=== PATIENT | female | born 1955 | race Caucasian/White ===

== ENCOUNTER 2019-01-17 09:51 | Inpatient (IN) ==
[2019-01-17] MEDS ORDERED: ASPIRIN PO ONE (11:07)
[2019-01-17] MEDS ORDERED: PEPCID PO ONE (11:08)
[2019-01-17] MEDS ORDERED: NS 1,000 ML IV ONE ×2 (11:08→15:11)
--- NOTE | 2019-01-17 11:32 | Diag Imaging Result Doc PS360 ---
CHEST-2 VIEWS - 01/17/2019 INDICATION: COUGH COMPARISON: 06/27/2018 FINDINGS: There is a new dense focal infiltrate at the right middle lobe. There is some stable mild interstitial scarring or chronic atelectasis in both lung bases. Heart size and pulmonary vascularity are top normal. No pneumothorax or significant pleural effusion. IMPRESSION: Dense infiltrate/pneumonia in the right middle lobe. Electronically signed by Terrell Guevara 01/17/2019 11:30 AM
--- NOTE | 2019-01-17 12:02 | Diag Imaging Result Doc PS360 ---
CT HEAD W/O CONTRAST - 01/17/2019 INDICATION: AMS COMPARISON: None FINDINGS: There is mild diffuse cerebral atrophy. No intracranial mass or hemorrhage. The skull is intact. The sinuses, mastoids, and middle ears are clear. IMPRESSION: Cerebral atrophy. No acute process. This exam was performed using automated exposure control, adjustment of mA or kV according to patient size, and/or use of iterative reconstruction technique Electronically signed by Terrell Guevara 01/17/2019 11:59 AM
[2019-01-17 12:33] LABS: URINE SOURCE CLEAN CATCH
[2019-01-17 12:36] LABS: BASO# 0.02 X1000 (0.0-0.2); BASO% 0.2 % (0.0-0.8); EOS# 0.09 X1000 (0.0-0.7); EOS% 0.9 % (0.0-10.0); IMM GRAN# 0.06 X1000 (0.0-0.04); IMM GRAN% 0.6 % (0.0-0.5); LYMPH# 1.95 X1000 (1.2-3.4); LYMPH% 18.6 % (20.5-51.1); MCH 30.2 PG (27-31); MCHC 33.3 g/dL (33-37); MCV 90.5 FL (81-99); MONO# 0.83 X1000 (0.11-0.59); MONO% 7.9 % (1.7-9.3); MPV 11.4 FL (7.4-10.4); NEUT# 7.55 X1000 (1.4-6.5); NEUT% 71.8 % (42.2-75.2); PLT 194 X1000 (130-400); RBC 4.31 XMIL (4.2-5.4); RDW 13.5 % (11.5-14.5)
[2019-01-17 12:38] LABS: BILIRUBIN URINE NEGATIVE (NEGATIVE); BLOOD URINE NEGATIVE (NEGATIVE); COLOR STRAW; GLUCOSE URINE NEGATIVE (NEGATIVE); KETONE URINE NEGATIVE (NEGATIVE); LEUKOCYTES URINE NEGATIVE (NEGATIVE); NITRITE URINE NEGATIVE (NEGATIVE); PROTEIN URINE NEGATIVE (NEGATIVE); TURBIDITY URINE CLEAR (CLEAR); UR EPITHELIAL CELLS <10 /HPF (<10); URINE BACTERIA NEGATIVE /HPF; URINE RBC <10 /HPF (<10); URINE WBC <10 /HPF (<10); UROBILINOGEN URINE NORMAL (NORMAL)
[2019-01-17 12:46] LABS: INR 0.92; PROTIME 13.1 Seconds (11.0-16.0)
[2019-01-17 12:47] LABS: PTT 39.8 Seconds (22.3-41.8)
[2019-01-17 13:03] LABS: ALB/GLOB RATIO 1.7; ALBUMIN 4.3 g/dL (3.5-5.0); CALCIUM 10.5 mg/dL (8.8-10.2); CREATININE 1.4 mg/dL (0.5-0.9); MAGNESIUM 1.8 mg/dL (1.5-2.7); POTASSIUM 3.9 mmol/L (3.5-5.1); TOTAL BILIRUBIN 0.22 mg/dL (0.20-1.00); TOTAL PROTEIN 6.8 g/dL (6.3-8.3)
[2019-01-17 13:03] LABS: UR AMPHETAMINES QUAL NONE DETECTED (NONE DETECT); UR BARBITUATES QUAL NONE DETECTED (NONE DETECT); UR BENZODIAZEPIN QUAL PRESUMPTIVE POSITIVE (NONE DETECT); UR CANNABINOIDS QUAL PRESUMPTIVE POSITIVE (NONE DETECT); UR COCAINE QUAL NONE DETECTED (NONE DETECT); UR METHADONE QUAL NONE DETECTED (NONE DETECT); UR OPIATES QUAL PRESUMPTIVE POSITIVE (NONE DETECT); UR OXYCODONE QUAL NONE DETECTED (NONE DETECT); UR PCP QUAL NONE DETECTED (NONE DETECT)
--- NOTE | 2019-01-17 13:58 | EKG Report ---
Test Performed on : 01/17/2019 12:50:19 PM Test Reason : AMS Blood Pressure : / mmHG Vent. Rate : 068 BPM Atrial Rate : 068 BPM P-R Int : 184 ms QRS Dur : 096 ms QT Int : 438 ms P-R-T Axes : 064 037 053 degrees QTc Int : 465 ms Normal sinus rhythm. Possible Left atrial enlargement Inferior infarct , age undetermined Abnormal ECG When compared with ECG of 23-JUL-2011 06:08, Inferior infarct is now present Nonspecific T wave abnormality no longer evident in Lateral leads Unconfirmed Result
[2019-01-17] MEDS ORDERED: ROCEPHIN 1 GM in NS 50 ML IV ONE (15:12)
[2019-01-17] MEDS ORDERED: ZOFRAN IV PRN (16:09)
[2019-01-17] MEDS ORDERED: NS 1,000 ML IV PRN (16:09)
[2019-01-17 16:14] LABS: ACETAMINOPHEN < 1.2 ug/mL (10-30); SALICYLATES < 3.00 mg/dL (3-10)
[2019-01-17 16:35] LABS: ALLEN TEST NO; BE -3.8 mmoll (-3.0-3.0); BLOOD TYPE ARTERIAL; HCO3-(ACT) 21.9 mmoll (20.0-26.0); METHB 1.1 % (0.0-1.5); O2(CT) 16.2 mL/dL (15.0-23.0); O2HB 94.1 % (95.0-99.0); PCO2(98.6) 35 mmHg (35-45); PO2(98.6) 72 mmHg (60-100); SAMPLE BLOOD; SAO2 97.3 % (95.0-100.0); THB 12.2 g/dL (11.5-17.4); pH(98.6) 7.38 (7.35-7.45)
[2019-01-17 16:36] LABS: MODALITY CANNULA
--- NOTE | 2019-01-17 18:22 | HISTORY AND PHYSICAL ---
PRIMARY CARE PROVIDER: Dr. Sixto Birmingham. CHIEF COMPLAINT: Altered mental status. HISTORY OF PRESENT ILLNESS: Ms. Ana Vega is a 63-year-old female with a medical history of chronic pain syndrome, anxiety/depression/bipolar disorder, and TIAs. She recently has been using Chantix to try and quit smoking. She presents here with altered mental status. Apparently she has called out of work the last 3 days. She has had an upper respiratory infection and was treated by Dr. Birmingham for pneumonia on Monday when she went to visit him. He started her on cefdinir and prednisone, and she has essentially been in bed for the last 3 days. She states that the phlegm she coughs up is yellow-green in color. She has had subjective fever and chills. According to the who is also at the bedside, she started acting odd last night, very odd behavior, just standing over him staring at him, and just staring in the hallway. She did not sleep at all last night. This morning apparently he must have gone to work, and she was supposed to show up at work, but she was a no-call and no-show, so her place of work called her and noted that she was altered with her thought process and speech, and notified her family. Apparently she was found on the floor trying to stick her finger in an electrical outlet. It appeared to the daughter, who is at the bedside, that it looked like she was trying to plug something in. She had very [id number] conversation, just very altered. There was no obvious source of weakness on one side or the other. There was no facial drooping. It was just all altered mentation. She was alert. X-ray shows that she has a right middle lobe pneumonia, for which apparently she was just started 2 days ago with treatment. Her head CT was negative. She has cleared up quite a bit since she has been here. She had an acute kidney injury and has received IV fluids. She does have a positive urine drug screen but has prescriptions except for the marijuana, which she states she smokes on a daily basis in the evenings. Her orientation for me was completely oriented, but she still had odd, [id number] conversation. She denies taking more medication than what is prescribed for her. The daughter who is at the bedside stated that the only bottle she could find was Xanax, which actually appeared to be accurate with what should be in there. So, we will admit. We will watch her in the ICU overnight. We will watch her at [facility], treat her pneumonia, and make adjustments as needed. PAST MEDICAL HISTORY: 1. Bipolar anxiety disorder. 2. Chronic pain syndrome. 3. Transient ischemic attacks. 4. Hypothyroidism. 5. Chronic obstructive pulmonary disease. No home oxygen. 6. Hypertension. 7. Gastroesophageal reflux disease 8. Arthritis. 9. Enlarged liver with normal liver enzymes and normal ammonia level. PAST SURGICAL HISTORY: 1. Partial hysterectomy. 2. section. SOCIAL HISTORY: She smokes 1 pack per day and has so for the last 30 years, although she has been taking Chantix for at least 1 month now in an attempt to stop smoking. She denies alcohol but smokes marijuana about 1-2 hits per night, according to her. She is an [employer] and still working. FAMILY HISTORY: Mother's side of the family: No medical conditions. Father's side of the family: Alzheimer's. ALLERGIES: No known drug allergies. HOME MEDICATIONS: 1. Chantix. 2. Coreg 6.25 mg p.o. twice a day. 3. Toradol 10 mg p.o. every 6 hours p.r.n. 4. Xanax 0.5 mg p.o. twice daily. 5. It also looks like she recently had Protonix filled, 40 mg p.o. daily. 6. She also had Symbyax 6-50 filled. We are getting those verified right now. 7. She most recently had prednisone 10 mg daily filled, and cefdinir. REVIEW OF SYSTEMS: Difficult to obtain given her altered conversation. States that she coughs up green-yellow phlegm and has just felt bad. PHYSICAL EXAMINATION: VITAL SIGNS: Temperature 97.9, heart rate 74, respiratory rate 18, blood pressure 127/81, O2 saturation 91% on room air. She has had oxygen added. GENERAL: Ms. Ana Vega is a 63-year-old female. She is in no acute distress. She is able to answer some questions appropriately. She is oriented but disoriented with conversation. Resting comfortably in bed. HEENT: Atraumatic, normocephalic. Pupils equal, round, and reactive to light. Extraocular movements intact. Mucous membranes are very dry . NECK: Trachea midline. CARDIOVASCULAR: S1 and S2, regular rate and rhythm. No rubs, gallops or murmurs. No lower extremity edema. Has +2 dorsalis and radial pulses. Negative JVD or carotid bruits. PULMONARY: Clear to auscultate bilaterally. Breath sounds decreased in bases anteriorly. No accessory muscle use or work of breathing noted. Currently tolerating nasal cannula. GI: Soft, nontender, nondistended. Positive bowel sounds x4. EXTREMITIES: Moves all extremities equally with full range of motion. NEUROLOGIC: A O x3 with confused conversation. Follows commands. Sensory is intact. SKIN: Warm, dry and intact. LABORATORY DATA: White blood cells 10,000, hemoglobin 13, hematocrit 39, platelet count 194. INR is 0.92, PTT 39.8. Sodium 142, potassium 3.9, BUN 26, creatinine 1.4, glucose 77. Calcium 10.5, magnesium 1.8, bilirubin 0.22. AST 9, ALT 7. Ammonia 33. Troponin less than 0.01. Albumin 4.3. Serum lactate 1.3. Free T4 is 1.13. Urinalysis is negative. Urine drug screen positive for opiates, benzodiazepines and cannabinoids. IMAGING: Chest x-ray: Dense infiltrate pneumonia in the right middle lobe. Head CT: Cerebral atrophy. No acute process. EKG: Normal sinus rhythm. Rate is 68, QTc 465. ASSESSMENT/PLAN: 1. Toxic metabolic encephalopathy. Could be induced through medications or her acute kidney injury. It is concerning that she is on Chantix, and she is also on Symbyax. It seems like this combination can do odd things. Will hold those for now. 2. Bipolar disorder/anxiety/depression. Apparently going to hold the Xanax, going to hold the Symbyax, and monitor her overnight. 3. History of transient ischemic attacks. Head CT is negative. 4. Chronic pain syndrome. Hold narcotics. 6. Hypothyroidism, but the TSH is normal, and she is not on any thyroid medication. 7. Pneumonia, community acquired. She has been started on Rocephin. It is in the right middle lobe. Could possibly be aspiration, but she does not have any complaints of difficulties with swallowing. 8. Gastroesophageal reflux disease. Once her home Protonix is verified, will continue that. 9. Hypertension, currently stable. She is on Coreg at home. That has been continued. 10.Marijuana abuse. Once she is more clear, will discuss cessation of marijuana. 11.Tobacco abuse. She has tried Chantix to try and quit smoking, but this may not be a very good drug choice for her. She has also had some nausea with it. 12.Acute kidney injury with dehydration. She has had 2 liters of IV fluids and will be started on maintenance fluids. Will check in the morning her numbers. 13.Deep venous thrombosis prophylaxis: Low-dose Lovenox. 14.Denies suicidal ideation or attempt. The patient is very confused, though, so will at least monitor her overnight in the intensive care unit. Dictated by PRISCILA Yanez for Manuel Noel MD cc: PRISCILA Yanez MD
[2019-01-17] MEDS ORDERED: COREG PO SCH ×2 (21:00)
[2019-01-17] MEDS: DUONEB (A & A) INH SCH (22:21)
[2019-01-17] MEDS ORDERED: XANAX PO ONE (23:29)
[2019-01-18] MEDS: DUONEB (A & A) INH SCH ×4 (03:06→22:40)
[2019-01-18] MEDS: LOVENOX SUBQ SCH (05:20)
[2019-01-18 06:32] LABS: BASO# 0.04 X1000 (0.0-0.2); BASO% 0.5 % (0.0-0.8); EOS# 0.22 X1000 (0.0-0.7); EOS% 2.6 % (0.0-10.0); HEMATOCRIT 37.3 % (37.0-47.0); HEMOGLOBIN 12.6 g/dL (12.0-16.0); IMM GRAN# 0.09 X1000 (0.0-0.04); IMM GRAN% 1.1 % (0.0-0.5); LYMPH# 2.15 X1000 (1.2-3.4); LYMPH% 25.4 % (20.5-51.1); MCH 30.1 PG (27-31); MCHC 33.8 g/dL (33-37); MCV 89.2 FL (81-99); MONO# 0.94 X1000 (0.11-0.59); MONO% 11.1 % (1.7-9.3); NEUT# 5.03 X1000 (1.4-6.5); NEUT% 59.3 % (42.2-75.2); PLT 195 X1000 (130-400); RBC 4.18 XMIL (4.2-5.4); RDW 13.5 % (11.5-14.5); WBC 8.47 X1000 (4.8-10.8)
[2019-01-18 07:02] LABS: AGAP 14; ALBUMIN 3.5 g/dL (3.5-5.0); ALKALINE PHOSPHATASE 59 U/L (32-104); BUN 13 mg/dL (8-22); CALCIUM 8.7 mg/dL (8.8-10.2); CHLORIDE 106 mmol/L (98-107); COSMO 283; CREATININE 0.9 mg/dL (0.5-0.9); ESTIMATED GFR > 60; GLUCOSE 100 mg/dL (70-104); GOT 8 U/L (10-30); GPT 6 U/L (10-36); POTASSIUM 3.5 mmol/L (3.5-5.1); SODIUM 142 mmol/L (136-145); TCO2 23 mmol/L (25-35); TOTAL PROTEIN 6.2 g/dL (6.3-8.3)
[2019-01-18] MEDS: ROCEPHIN 1 GM in NS 50 ML IV SCH (08:41)
[2019-01-18] MEDS: TYLENOL PO PRN ×3 (08:41→22:48)
[2019-01-18] MEDS: COREG PO SCH ×2 (08:41→20:28)
--- NOTE | 2019-01-18 12:39 | PROGRESS NOTE ---
DATE: 01/18/2019 SUBJECTIVE: The patient denies having any acute complaints this morning and feels better. OBJECTIVE: Vital Signs: Temperature 98.7 degrees, pulse 67 per minute, respiratory rate 20 per minute, blood pressure 162/70, and pulse oximetry 96% on room air. General: Patient is alert and oriented x3. She does not appear to be in any acute distress this morning. Cardiovascular: First and second heart sounds are audible without any murmurs or gallops. Respiratory: No respiratory distress noted. Bilateral lung air entry is good without any rales or rhonchi. Gastrointestinal: Abdomen is soft and nondistended. Normal bowel sounds are present. DIAGNOSTIC DATA: CBC is nondiagnostic. Chemistry shows improved BUN and creatinine of 13 and 0.9. Rest of the comprehensive metabolic panel is also nondiagnostic. IMPRESSION: 1. Pneumonia. 2. Metabolic encephalopathy with acute kidney injury, both of which have now resolved. 3. Hypothyroidism. 4. Bipolar disorder. PLAN: The patient's condition has improved, and we are going to continue with IV ceftriaxone along with IV fluids. We are going to transfer her to the regular med/surg floor and keep her on telemetry. She can probably be able to go home in the next 1 to 2 days if she continues to get better. cc: Arely Lebron MD
[2019-01-18] MEDS: NS 1,000 ML IV SCH (12:51)
[2019-01-18] MEDS: PATIENT'S OWN MED PO SCH (20:28)
[2019-01-18] MEDS ORDERED: HALL'S COUGH LOZENGE MT PRN (23:19)
[2019-01-19] MEDS: DUONEB (A & A) INH SCH ×4 (03:12→22:55)
[2019-01-19] MEDS: LOVENOX SUBQ SCH (05:04)
[2019-01-19 06:14] LABS: BASO# 0.04 X1000 (0.0-0.2); BASO% 0.4 % (0.0-0.8); EOS# 0.19 X1000 (0.0-0.7); EOS% 1.8 % (0.0-10.0); HEMATOCRIT 37.3 % (37.0-47.0); HEMOGLOBIN 12.4 g/dL (12.0-16.0); IMM GRAN# 0.16 X1000 (0.0-0.04); IMM GRAN% 1.5 % (0.0-0.5); LYMPH# 2.28 X1000 (1.2-3.4); LYMPH% 21.8 % (20.5-51.1); MCH 29.5 PG (27-31); MCHC 33.2 g/dL (33-37); MCV 88.6 FL (81-99); MONO# 0.97 X1000 (0.11-0.59); MONO% 9.3 % (1.7-9.3); MPV 10.6 FL (7.4-10.4); NEUT# 6.81 X1000 (1.4-6.5); NEUT% 65.2 % (42.2-75.2); PLT 208 X1000 (130-400); RBC 4.21 XMIL (4.2-5.4); RDW 13.4 % (11.5-14.5); WBC 10.45 X1000 (4.8-10.8)
[2019-01-19] MEDS: TYLENOL PO PRN ×2 (06:16→14:37)
[2019-01-19] MEDS: NS 1,000 ML IV SCH ×2 (06:17→19:22)
[2019-01-19 06:32] LABS: AGAP 13; BUN 12 mg/dL (8-22); CALCIUM 8.4 mg/dL (8.8-10.2); CHLORIDE 107 mmol/L (98-107); COSMO 285; CREATININE 0.8 mg/dL (0.5-0.9); ESTIMATED GFR > 60; GLUCOSE 128 mg/dL (70-104); POTASSIUM 3.3 mmol/L (3.5-5.1); SODIUM 142 mmol/L (136-145); TCO2 22 mmol/L (25-35)
--- NOTE | 2019-01-19 08:00 | Diag Imaging Result Doc PS360 ---
CHEST-PORTABLE - 01/19/2019 INDICATION: Pneumonia COMPARISON: 01/17/2019 FINDINGS: There has been decrease in the density of the patchy bibasilar infiltrates. No new infiltrates. Heart size remains normal. IMPRESSION: Decreased density of the bibasilar infiltrates. Electronically signed by Terrell Guevara 01/19/2019 7:57 AM
[2019-01-19] MEDS ORDERED: KLOR-CON PO ONE (08:35)
[2019-01-19] MEDS ORDERED: PROTONIX PO SCH (09:00)
[2019-01-19] MEDS: ROCEPHIN 1 GM in NS 50 ML IV SCH (09:47)
[2019-01-19] MEDS: COREG PO SCH ×2 (09:47→22:28)
--- NOTE | 2019-01-19 12:11 | PROGRESS NOTE ---
DATE: 01/19/2019 SUBJECTIVE: Patient feels much better this morning as compared to the previous days. She denies having any acute complaints. OBJECTIVE: Vital Signs: Temperature 99 degrees, pulse 67 per minute, respiratory rate 17 per minute, blood pressure 138/61, pulse 97% on room air. General: Patient is alert and oriented x3. She does not appear to be in any acute distress. Cardiovascular System: First and second heart sounds are audible without any murmurs or gallops. Respiratory System: Bilateral lung air entry is mildly decreased but there are no rales or rhonchi present on auscultation. Abdomen: Benign. LABORATORY AND DIAGNOSTIC DATA: CBC is nondiagnostic and basic metabolic panel shows potassium levels of 3.3. Rest of the BMP is nondiagnostic. Chest x-ray done this morning showed decreased density of bibasilar infiltrates. IMPRESSION: 1. Pneumonia. 2. Hypokalemia. 3. Bipolar disorder. PLAN: We are going to continue with IV fluids along with IV ceftriaxone. She will be continue with her routine home medications and inhaled bronchodilators. Furthermore, I am going to continue her on enoxaparin for venous thromboembolism prophylaxis. We are going to give her potassium chloride 40 mEq as a single dose for hypokalemia and repeat labs including CBC, BMP, and also a chest x-ray tomorrow morning. She can probably be discharged home tomorrow if continues to improve dictation. cc: Arely Lebron MD
[2019-01-19] MEDS: PATIENT'S OWN MED PO SCH (22:33)
[2019-01-20] MEDS: TYLENOL PO PRN ×4 (01:59→23:19)
[2019-01-20] MEDS: DUONEB (A & A) INH SCH ×4 (03:27→21:35)
[2019-01-20 06:03] LABS: BASO# 0.03 X1000 (0.0-0.2); BASO% 0.3 % (0.0-0.8); EOS# 0.24 X1000 (0.0-0.7); EOS% 2.1 % (0.0-10.0); HEMATOCRIT 34.9 % (37.0-47.0); HEMOGLOBIN 11.6 g/dL (12.0-16.0); IMM GRAN# 0.23 X1000 (0.0-0.04); IMM GRAN% 2.1 % (0.0-0.5); LYMPH# 2.55 X1000 (1.2-3.4); LYMPH% 22.8 % (20.5-51.1); MCH 29.6 PG (27-31); MCHC 33.2 g/dL (33-37); MONO# 1.11 X1000 (0.11-0.59); MONO% 9.9 % (1.7-9.3); MPV 10.6 FL (7.4-10.4); NEUT# 7.03 X1000 (1.4-6.5); NEUT% 62.8 % (42.2-75.2); PLT 206 X1000 (130-400); RBC 3.92 XMIL (4.2-5.4); RDW 13.3 % (11.5-14.5); WBC 11.19 X1000 (4.8-10.8)
[2019-01-20 06:22] LABS: AGAP 13; BUN 9 mg/dL (8-22); CALCIUM 8.3 mg/dL (8.8-10.2); CHLORIDE 109 mmol/L (98-107); COSMO 283; CREATININE 0.7 mg/dL (0.5-0.9); ESTIMATED GFR > 60; GLUCOSE 115 mg/dL (70-104); POTASSIUM 3.8 mmol/L (3.5-5.1); SODIUM 142 mmol/L (136-145); TCO2 21 mmol/L (25-35)
[2019-01-20] MEDS: NS 1,000 ML IV SCH ×2 (06:25→15:24)
[2019-01-20] MEDS: LOVENOX SUBQ SCH (06:26)
--- NOTE | 2019-01-20 07:58 | Diag Imaging Result Doc PS360 ---
CHEST-PORTABLE - 01/20/2019 INDICATION: pneumonia COMPARISON: 01/19/2019 FINDINGS: There has been significant improvement in the ill-defined right basilar infiltrate. There is some linear atelectasis in both lung bases. Heart size is normal. IMPRESSION: Improvement in the right basilar infiltrate/pneumonia. Electronically signed by Terrell Guevara 01/20/2019 7:56 AM
[2019-01-20] MEDS: ROCEPHIN 1 GM in NS 50 ML IV SCH (08:19)
[2019-01-20] MEDS: COREG PO SCH ×2 (08:20→21:51)
--- NOTE | 2019-01-20 11:16 | PROGRESS NOTE ---
DATE: 01/20/2019 SUBJECTIVE: The patient complains of having some itchiness in her eyes, especially involving her right eye. She denies having any other complaints. OBJECTIVE: Vital Signs: Temperature 97.9 degrees, pulse 70 per minute, blood pressure 159/75, respiratory rate 16 per minute, pulse oximetry 96% on room air. General: Patient is alert and oriented x3. She does not appear to be in any acute distress. HEENT: Bilateral conjunctival injection is present, especially on the right side where there is some purulent drainage. Cardiovascular System: First and second heart sounds are audible without any murmurs or gallops. Respiratory System: Bilateral lung air entry is moderately decreased, but no rales or rhonchi present on auscultation. Gastrointestinal system: Abdomen is benign. LABORATORY: CBC shows hemoglobin of 11.6 and hematocrit 34.9. In comparison, her hemoglobin was 12.4 and hematocrit 37.3 yesterday. Chemistry this morning is nondiagnostic. IMAGING: Chest x-ray showed improvement in the right basilar infiltrate. IMPRESSION: 1. Pneumonia. 2. Acute conjunctivitis. 3. Anxiety disorder. PLAN: The patient will be continued on ceftriaxone intravenously for her pneumonia, which is getting better. She is having acute conjunctivitis for which I have initiated her on gentamicin ophthalmic ointment. She is having some anxiety disorder, for which I advised her to restart taking alprazolam 0.5 mg orally twice daily. Venous thromboembolism prophylaxis will be provided with enoxaparin subcutaneously. She can probably be discharged home in the next 1 to 2 days if continues to get better dictation. cc: Arely Lebron MD
[2019-01-20] MEDS: GENTAMICIN 0.3% OPH DROPS BOTH EYES SCH ×4 (12:38→23:18)
[2019-01-20] MEDS ORDERED: GENTAMICIN 0.3% OPH OINT BOTH EYES SCH (13:00)
[2019-01-20] MEDS: XANAX PO SCH (21:30)
[2019-01-20] MEDS: PATIENT'S OWN MED PO SCH (21:51)
[2019-01-21] MEDS: GENTAMICIN 0.3% OPH DROPS BOTH EYES SCH ×6 (03:00→23:35)
[2019-01-21] MEDS: DUONEB (A & A) INH SCH ×4 (05:03→21:10)
[2019-01-21] MEDS: NS 1,000 ML IV SCH ×2 (06:29→19:28)
[2019-01-21] MEDS: LOVENOX SUBQ SCH (06:30)
[2019-01-21] MEDS: TYLENOL PO PRN ×3 (06:30→21:16)
[2019-01-21 06:46] LABS: BASO# 0.04 X1000 (0.0-0.2); BASO% 0.4 % (0.0-0.8); EOS# 0.24 X1000 (0.0-0.7); EOS% 2.6 % (0.0-10.0); HEMATOCRIT 34.4 % (37.0-47.0); HEMOGLOBIN 11.5 g/dL (12.0-16.0); IMM GRAN# 0.24 X1000 (0.0-0.04); IMM GRAN% 2.6 % (0.0-0.5); LYMPH# 2.34 X1000 (1.2-3.4); LYMPH% 25.1 % (20.5-51.1); MCH 29.6 PG (27-31); MCHC 33.4 g/dL (33-37); MCV 88.4 FL (81-99); MONO# 0.95 X1000 (0.11-0.59); MONO% 10.2 % (1.7-9.3); MPV 9.9 FL (7.4-10.4); NEUT% 59.1 % (42.2-75.2); PLT 236 X1000 (130-400); RBC 3.89 XMIL (4.2-5.4); RDW 13.3 % (11.5-14.5); WBC 9.31 X1000 (4.8-10.8)
[2019-01-21 07:02] LABS: AGAP 13; BUN 9 mg/dL (8-22); CALCIUM 8.3 mg/dL (8.8-10.2); CHLORIDE 111 mmol/L (98-107); COSMO 287; CREATININE 0.7 mg/dL (0.5-0.9); ESTIMATED GFR > 60; GLUCOSE 121 mg/dL (70-104); POTASSIUM 3.8 mmol/L (3.5-5.1); SODIUM 144 mmol/L (136-145); TCO2 20 mmol/L (25-35)
[2019-01-21] MEDS ORDERED: NS 50 ML ONE (07:09)
[2019-01-21] MEDS: COREG PO SCH ×2 (11:23→21:15)
[2019-01-21] MEDS: ROCEPHIN 1 GM in NS 50 ML IV SCH (11:24)
[2019-01-21] MEDS: XANAX PO SCH ×2 (11:32→21:15)
[2019-01-21] MEDS: PATIENT'S OWN MED PO SCH (21:15)
[2019-01-22] MEDS: GENTAMICIN 0.3% OPH DROPS BOTH EYES SCH ×3 (03:36→09:08)
[2019-01-22] MEDS: DUONEB (A & A) INH SCH (05:26)
[2019-01-22 08:06] VITALS: BP 174/69
--- NOTE | 2019-01-22 08:14 | DISCHARGE SUMMARY ---
ADMISSION DATE: 01/17/2019 DISCHARGE DATE: 01/21/2019 DISCHARGE DIAGNOSES: 1. Pneumonia. 2. Chronic anxiety. 3. Bilateral conjunctivitis. 4. Labile hypertension. 5. Bacteremia. 6. Sepsis, resolved. CONSULTATIONS: None. PROCEDURES: None. BRIEF HOSPITAL COURSE: The patient is a 63-year-old female who presented to the hospital, treated in the usual fashion, placed on antibiotics. Thankfully, she had no further complications. She did have strep positive bacteremia and therefore will be discharged home on antibiotics. Thankfully, it was sensitive to Levaquin. Overall, she is doing better. She has no complaints. She is ambulating without any difficulty. Still has some mild cough and congestion but notes it is improved. DISPOSITION: The patient will be discharged home on Levaquin for 14 days. She will follow up during this time with Dr. Birmingham, her primary care. We will continue her other home medications. Discussed with her the importance of avoidance of smoke and smoke exposure. No changes were made on her home medications otherwise. Greater than 30 minutes were spent in total care. cc: Zeeshan Holbrook MD
[2019-01-22] MEDS: NS 1,000 ML IV SCH (09:06)
[2019-01-22] MEDS: LOVENOX SUBQ SCH (09:07)
[2019-01-22] MEDS: XANAX PO SCH (09:07)
[2019-01-22] MEDS: COREG PO SCH (09:07)
[2019-01-22] MEDS: ROCEPHIN 1 GM in NS 50 ML IV SCH (09:07)
[2019-01-22] MEDS: TYLENOL PO PRN (09:21)
--- NOTE | 2019-01-22 22:50 | PROGRESS NOTE ---
DATE: 01/22/2019 SUBJECTIVE: Patient notes the diarrhea is improved. Her breathing is improved. Denies any current complaints. OBJECTIVE: Vital Signs: Reviewed. General: She is awake, alert. She is afebrile. Thankfully, she overall is in no respiratory distress. Blood pressure is stable. HEENT: Normocephalic. Neck: Supple. Cardiovascular: Regular rate. Chest: Relatively clear, nonlabored. No wheezing. Abdomen: Soft, nondistended, nontender. Extremities: Moves all extremities. ASSESSMENT: 1. Pneumonia. 2. Conjunctivitis, resolved. 3. Chronic anxiety. 4. Acute diarrhea, resolved. PLAN: Overall, patient has improved. She was not discharged home yesterday because she was still having diarrhea; however, today that is improved. Therefore, we will discharge her home, and she will follow up outpatient with primary care. cc: Zeeshan Holbrook MD
--- NOTE | 2019-01-24 23:59 | PROVIDER DOCUMENTATION ---
This chart was entered by Rachell Slater Scribe, acting as scribe for Ok Bo MD. HPI-Neurological Disorder - General Chief Complaint: Altered Mental Status Stated Complaint: ams Time Seen by Provider: 01/17/19 10:50 Source: patient, family (daughter/) Allergies/Adverse Reactions: Patient Allergies Allergy/AdvReac Type Severity Reaction Status Date / Time No Known Allergies Allergy Verified 01/17/19 15:37 Home Medications: Home Medication List Medication Instructions Recorded Confirmed Last Taken Type Alprazolam [Xanax] 0.5 mg PO BID 01/17/19 01/17/19 Unknown History Carvedilol [Coreg] 6.25 mg PO BID 01/17/19 01/17/19 Unknown History Ketorolac [Toradol] 10 mg PO Q6H PRN PRN 01/17/19 01/17/19 Unknown History Varenicline Tartrate [Chantix] 1 ea PO DAILY 01/17/19 01/17/19 Unknown History Pantoprazole [Protonix] 40 mg PO DAILY 01/18/19 01/18/19 Unknown History Levofloxacin [Levaquin] 500 mg PO DAILY #14 tab 01/22/19 Unknown Rx - History of Present Illness-Neuro Nature of Presenting Problem: 63 yowf presents to the ed with c/o ams. family sts pt in the past has hx with taking "pills" but pt denies taking any medications. pt is a [employer]PARTMENT [employer] and has missed work and was a no call no show this am. pt sts last night she was presenting with odd behavior, did not sleep at all and qwas standing in the hallway starring at him during the night. daughter sts work called thios am and sts she was talking odd and sent family to check opn her. pt was found sitting in the floor trying to stick her finger in an electrical outlet. pt on exam is awake but easily confused and is unsure why she is here. Onset/Duration: reports: last night Timing: reports: still present, intermittent, getting worse Context: reports: facial droop (mild left sided). denies: head injury, impaired speech Character of Altered Mental Status: reports: disoriented, confused, trouble concentrating Any recent trauma/injury?: reports: none Character of Deficits: denies: new weakness, altered sensation, vision problem/glaucoma, impaired speech, impaired swallowing, decreased ability to walk New weakness or altered sensation location:: reports: none Cognitive Baseline: alert but confused Gait Baseline: walks without assistance Associated Symptoms: reports: insomnia. denies: headache, decreased ability to walk or stand, dizziness, neck/back pain, nausea, numbness in legs/feet, paresthesia, diaphoretic, seizures, slurred speech, tingling in legs/feet, trouble walking, vision changes Similar Symptoms Previously?: Yes Recently seen or treated by another doctor?: No Review of Systems - Adult - REVIEW OF SYSTEMS - ADULT ROS:: ROS per family (daughter and ) Constitutional: denies: chills, fever Eyes: reports: no symptoms reported Ears, Nose, Mouth & Throat: reports: no symptoms reported Cardiovascular: denies: chest pain, palpitations Respiratory: denies: chronic cough, shortness of breath, wheezing Gastrointestinal: denies: abdominal pain, diarrhea, nausea, vomiting Genitourinary: denies: dysuria, discharge, incontinence Musculoskeletal: denies: back pain, neck pain Integumentary: reports: no symptoms reported Neurological: reports: no symptoms reported Psychiatric: reports: see HPI, depression, emotional problems, insomnia. denies: suicidal thoughts Endocrine: reports: no symptoms reported Hematologic/Lymphatic: reports: no symptoms reported Allergic/Immunologic: reports: no symptoms reported All Other Systems: Reviewed and Negative Past History - Adult - PAST MEDICAL HISTORY-ADULT Review of Records: reports: Old Records Reviewed, Nursing Assessment Review, Medications Reviewed, Social history reviewed & non-contributory. Major Childhood Illnesses: reports: denies history Cardiovascular: reports: HTN Respiratory: reports: denies history Gastrointestinal: reports: denies history Obstetrical/Gynecological: reports: denies history Genitourinary: reports: denies history Musculoskeletal: reports: denies history Hand Dominance: Right Handed Neurological: reports: TIA Psychiatric: reports: anxiety, depression Endocrine/Immune: reports: denies history Other Conditions: reports: denies history - PRIOR SURGERIES/PROCEDURES Surgical/Procedure History: reports: reviewed, not pertinent - IMMUNIZATION STATUS Childhood Immunizations: See Nurse Assessment Flu Vaccine: See Nurse Assessment - FAMILY HISTORY Family History: reviewed, not pertinent - SOCIAL HISTORY Smoking: denies Alcohol Use Frequency: never Living Situation: family Physical Exam- Neurological - Physical Exam-Neuro Initial Vital Signs Reviewed: Yes General Appearance: alert, no apparent distress, obese Eye Exam: bilateral eye: normal inspection, PERRL, EOMI HENMT: moist mucous membranes Head Injury: no evidence of injury Neck: non-tender, supple, normal inspection Respiratory: chest non-tender, lungs clear, normal breath sounds Cardiovascular: normal peripheral pulses, regular rate, rhythm Abdominal Exam: normal bowel sounds, non tender, soft Lymphatic: no adenopathy Extremity: normal range of motion, non-tender, normal inspection, no pedal edema , no calf tenderness, normal capillary refill public transit specialist Exam: normal hearing, normal speech, PERRL, facial droop (left mouth mild) Motor/Sensory: pronator drift (L), weak motor strength LLE (mild) Neurologic: abnormal public transit specialist II-XII, facial droop (mild) Integumentary: normal color, normal turgor, warm/dry Psych/Mental Status: normal mood/affect, disoriented x 3 - Glascow Coma Scale Best Eye Response: (4) open spontaneously Best Verbal Response: (4) confused conversation Best Motor Response: (6) obeys commands Total Glascow Score: 14 Progress - PLAN OF CARE/RESULTS Progress/Plan/Lab Results: Orders Category Date Time Status Admit - [facility] Routine AdmDCTranf 01/17/19 16:09 Active Activity - Up with Assistance ORDERED Care 01/17/19 17:08 Active Cardiac Monitoring DIRECTED Care 01/17/19 11:01 Completed Intake and Output-Strict ORDERED Care 01/17/19 17:08 Active Nursing- Assist w/ IS as order ORDERED Care 01/17/19 17:08 Active Update & Confirm Home Medicati ROUTINE Care 01/17/19 16:14 Completed Vital Signs Order Q 4-HR ASSESS Care 01/17/19 17:08 Active Z-Document. for Tele Applied ORDERED Care 01/17/19 17:08 Completed Social Service Consult Routine Cons 01/17/19 17:08 Active Regular Diet Diet 01/17/19 16:10 Completed CHEST-2 VIEWS [RAD] Stat Exams 01/17/19 11:[address] HEAD W/O CONTRAST [CT] Stat Exams 01/17/19 11:40 Completed ABG [RESP] Routine Lab 01/17/19 16:19 Completed ACETAMINOPHEN [TDM] Stat Lab 01/17/19 15:41 Completed ALCOHOL BLOOD Stat Lab 01/17/19 15:41 Completed AMMONIA [CHEM] Stat Lab 01/17/19 12:10 Completed BLOOD CULTURE [BLDCUL] Stat Lab 01/17/19 15:41 Completed CBC WITH ELECTRONIC DIFF [HEME] Stat Lab 01/17/19 12:10 Completed COMPREHENSIVE METABOLIC PANEL [CHEM] Stat Lab 01/17/19 12:10 Completed FREE T4 Stat Lab 01/17/19 12:10 Completed GRAM STAIN [BLDCUL] Stat Lab 01/17/19 12:35 Completed INFLUENZA SCREEN A/B Stat Lab 01/17/19 12:36 Completed LACTATE, PLASMA [CHEM] Stat Lab 01/17/19 12:10 Completed MAGNESIUM [CHEM] Stat Lab 01/17/19 12:10 Completed PROTIME WITH INR [COAG] Stat Lab 01/17/19 12:10 Completed PTT [COAG] Stat Lab 01/17/19 12:10 Completed SALICYLATES [TDM] Stat Lab 01/17/19 15:41 Completed SPUTUM CULTURE WITH GRAM STAIN [RM] Routine Lab 01/17/19 16:47 Completed TROPONIN T Stat Lab 01/17/19 12:10 Completed URINALYSIS W/POSS RFLX CULT [URINALYSIS] Stat Lab 01/17/19 12:00 Completed URINE DRUG SCREEN Stat Lab 01/17/19 12:00 Completed 0.9% Sodium Chloride Inj [Ns] 1,000 ml Med 01/17/19 16:09 Discontinued IV 75 mls/hr 0.9% Sodium Chloride Inj [Ns] 1,000 ml Med 01/17/19 11:08 Discontinued IV 999 mls/hr 0.9% Sodium Chloride Inj [Ns] 1,000 ml Med 01/17/19 15:11 Discontinued IV 999 mls/hr Acetaminophen [Tylenol] Med 01/17/19 16:09 Discontinued 650 mg PO Q6H PRN PRN Albuterol 2.5MG/Ipratrop 0.5MG [Duoneb (A & A)] Med 01/17/19 22:00 Discontinued 3 ml INH RTQ6H Aspirin Med 01/17/19 11:07 Discontinued 325 mg PO NOW ONE Carvedilol [Coreg] Med 01/17/19 21:00 Discontinued 6.25 mg PO BID CefTRIAXONE [Rocephin] 1 gm Med 01/17/19 15:12 Discontinued 0.9% Sodium Chloride Inj [Ns] 50 ml IV NOW CefTRIAXONE [Rocephin] 1 gm Med 01/18/19 09:00 Discontinued 0.9% Sodium Chloride Inj [Ns] 50 ml IV Q24H Enoxaparin [Lovenox] Med 01/18/19 06:00 Discontinued 30 mg SUBQ Q24H Famotidine [Pepcid] Med 01/17/19 11:08 Discontinued 20 mg PO NOW ONE Ondansetron [Zofran] Med 01/17/19 16:09 Discontinued 4 mg IV Q4H PRN PRN Aerosol Treatments Routine Oth 01/17/19 16:09 Completed Incentive Spirometer Routine Ot 01/17/19 17:08 Completed Oxygen Device Routine Ot 01/17/19 17:08 Completed Pulse Oximetry Routine Ot 01/17/19 17:08 Completed Telemetry [OM.EQ] Routine Ot 01/17/19 16:09 Active EKG [EKG] Stat Ther 01/17/19 11:01 Draft Transfer/Admit Order [TRANSFER] Routine Transfer 01/17/19 16:03 Completed no TPA given due to sx improving greatly Result Diagrams: 01/21/19 06:32 01/21/19 06:32 - REASSESSMENT Reassessment #1 Time Reassessed: 12:11 (pt is resting and family is at bedside) Status: improving Reassessment #2 Time Reassessed: 13:53 (pt is resting in bed) - EKG 1 Time of EKG reading by physician:: 12:50 EKG Read and Signed by:: Ok Bo EKG Interpretation (*Must complete 3 of following elements*): Abnormal Rate: 68 Rhythm: nsr [place]: normal QRS: other (possible left atrial enlargement) [place] Interval: normal ST Wave: normal Comments: inferior infarct, age undetermiend - XRAY 1 XRAY: Bilateral XRAY Study: Chest Impression: See EMR Report (CHEST-2 VIEWS - 01/17/2019 INDICATION: COUGH COMPARISON: 06/27/2018 FINDINGS: There is a new dense focal infiltrate at the right middle lobe. There is some stable mild interstitial scarring or chronic atelectasis in both lung bases. Heart size and pulmonary vascularity are top normal. No pneumothorax or significant pleural effusion. IMPRESSION: Dense infiltrate/pneumonia in the right middle lobe. Electronically signed by Terrell Guevara 01/17/2019 11:30 AM 01/17/19 1130 Interpreting Physician: Terrell Edgar MD Dictated Date/Time: 01/17/19 1129 cc: Ok Bo MD; Sixto [place]) - CT/MRI 1 CT Study: Head Impression: See EMR Report (CT HEAD W/O CONTRAST - 01/17/2019 INDICATION: AMS COMPARISON: None FINDINGS: There is mild diffuse cerebral atrophy. No intracranial mass or hemorrhage. The skull is intact. The sinuses, mastoids, and middle ears are clear. IMPRESSION: Cerebral atrophy. No acute process. This exam was performed using automated exposure control, adjustment of mA or kV according to patient size, and/or use of iterative reconstruction technique Electronically signed by Terrell Guevara 01/17/2019 11:59 AM 01/17/19 1159 Interpreting Physician: Terrell Guevara MD Dictated Date/Time: 01/17/19 1158 cc: Ok Bo MD; Sixto [place]) - CONSULTS/PCP/HOSPITALIST Notification #1 *Consult/PCP/Hospitalist*: [facility] ACCEPTS ADMISSION TO DR BISHOP Time Discussed: 15:24 Consult Disposition: Admit Departure - Departure Date of Disposition Decision: 01/17/19 Time of Disposition Decision: 15:25 DIAGNOSIS: RML pneumonia, Altered mental status Disposition: ADMITTED INPATIENT 09 Certified Medical Emergency: Emergent Condition: Stable - Critical Care Note This patient required my direct & personal management of CC.: Yes Total Time (mins): 37 Critical Care Statement: This patient required my direct personal management to treat or rule out processes, the absence of which, could potentiallly result in sudden, clinically significant life or limb threatening deterioration. Attestation - Physician/ ALFONSO Attestation The physician spent face to face time with patient:: Yes Advanced Practice Provider documentation review:: Supervising physician onsite and consulted in the evaluation and care of this patient. The physician did have a face to face encounter with the patient. - NIH Stroke Scale NIH Type: Initial Evaluation Level of Consciousness: 0-Alert LOC Questions (ask month and age): 1-Answers One Correctly LOC Commands (ask to open & close eyes;make a fist, let go): 0-Obeys Both Correctly Best Gaze (horizontal eye movement): 0-Normal Visual (use finger movement, counting or visual threat): 0-No Visual Loss Facial Palsy (show teeth or raise eyebrows & close eyes tght: 1-Minor Paralysis (left mouth droop mild) Motor Function-left arm: 0-Normal Motor Function-right arm: 0-Normal Motor Function-left le-Drift Motor Function-right le-Normal Limb Ataxia(tzyfsx-ecfo-qeebbq, or heel to peguero): 0-No Ataxia Sensory(pin prick to face,arms,trunk,legs-compare side/side): 0-No Ataxia Best Language(name item/read sentence.Ex-Down to Earth): 1-Mild to Moderate Aphasia Dysarthria(Pt read words or say words Ex.Mama,Tip-Top,Thanks: 0-Normal Articulation Extinction and Inattention: 0-Normal NIH Total Score: 4 This chart was documented by the indicated scribe, (Rachell Slater, Kasia) and accurately reflects the services I performed and decisions made by me, Ok Bo MD, as attested by the provider's signature.
== END 2019-01-22 11:22 | disposition home or self-care (01) | DRG 871 ==
LOC: SUPCPDRO → ED 09:51 → SUATTDRO 16:29 → P.ICU 16:29 → P.MEDSURG 01-18 13:25
PROVIDERS: ATTEND Family Medicine
CPT/HCPCS: 36415; 70450; 71010; 71020; 71045; 71046; 80048; 80053; 80101; 80196; 80301; 80307; 80320; 80324; 80329; 80345; 80346; 80353; 80358; 80361; 80365; 81001; 82003; 82055; 82140; 82805; 82948; 83605; 83735; 83992; 84439; 84443; 84484; 85025; 85610; 85730; 87040; 87070; 87077; 87186; 87205; 87275; 87276; 87324; 87804; 89220; 93005; 94640; 94761; 94799; 96361; 96365; 99285; A9270; G0431; G0434; G0479; G0480; G6038; G6039; G6040; J0696; J1650; J7030; XXXXX

== ENCOUNTER 2019-09-26 19:17 | Observation (INO) ==
[2019-09-26] MEDS ORDERED: NS 1,000 ML IV ONE (19:40)
--- NOTE | 2019-09-26 19:52 | Diag Imaging Result Doc PS360 ---
EXAM: CHEST-1 VIEW HISTORY: syncope TECHNIQUE: Single view COMPARISON: 01/20/2019 FINDINGS: The lungs are well expanded. The heart is not enlarged. The vessels are not distended. There are no infiltrates. No effusion identified. Left basilar granuloma. IMPRESSION: Negative exam. Electronically signed by Cory Layne 09/26/2019 7:50 PM
--- NOTE | 2019-09-26 20:03 | Diag Imaging Result Doc PS360 ---
EXAM: CT HEAD W/O CONTRAST HISTORY: syncope vs seizure TECHNIQUE: CT head without contrast COMPARISON: 01/17/2019 FINDINGS: No parenchymal hemorrhage. No epidural or subdural hematoma. No subarachnoid hemorrhage. No mass identified on this noncontrasted exam. No hydrocephalus. No sinus opacification. IMPRESSION: No hemorrhage. Negative brain CT without contrast. This exam was performed using automated exposure control, adjustment of mA or kV according to patient size, and/or use of iterative reconstruction technique. Electronically signed by Cory Layne 09/26/2019 8:01 PM
[2019-09-26 20:43] LABS: BASO# 0.04 X1000 (0.0-0.2); BASO% 0.4 % (0.0-0.8); EOS# 0.22 X1000 (0.0-0.7); EOS% 2.2 % (0.0-10.0); HEMATOCRIT 39.7 % (37.0-47.0); HEMOGLOBIN 12.9 g/dL (12.0-16.0); IMM GRAN# 0.04 X1000 (0.0-0.04); IMM GRAN% 0.4 % (0.0-0.5); LYMPH# 2.85 X1000 (1.2-3.4); LYMPH% 27.9 % (20.5-51.1); MCH 29.9 PG (27-31); MCHC 32.5 g/dL (33-37); MCV 91.9 FL (81-99); MONO# 0.64 X1000 (0.11-0.59); MONO% 6.3 % (1.7-9.3); MPV 11.4 FL (7.4-10.4); NEUT# 6.43 X1000 (1.4-6.5); NEUT% 62.8 % (42.2-75.2); PLT 215 X1000 (130-400); RBC 4.32 XMIL (4.2-5.4); RDW 14.9 % (11.5-14.5); WBC 10.22 X1000 (4.8-10.8)
--- NOTE | 2019-09-26 21:04 | EKG Report ---
Test Performed on : 09/26/2019 8:32:00 PM Test Reason : syncope Blood Pressure : / mmHG Vent. Rate : 067 BPM Atrial Rate : 067 BPM P-R Int : 184 ms QRS Dur : 088 ms QT Int : 444 ms P-R-T Axes : 066 030 056 degrees QTc Int : 469 ms Normal sinus rhythm. Possible Left atrial enlargement Borderline ECG When compared with ECG of 18-MAR-2019 12:25, No significant change was found Unconfirmed Result
[2019-09-26 21:31] LABS: ALB/GLOB RATIO 2.6; ALBUMIN 4.7 g/dL (3.5-5.0); CALCIUM 9.7 mg/dL (8.8-10.2); CREATININE 1.4 mg/dL (0.5-0.9); POTASSIUM 4.1 mmol/L (3.5-5.1); TOTAL BILIRUBIN 0.17 mg/dL (0.20-1.00); TOTAL PROTEIN 6.5 g/dL (6.3-8.3)
[2019-09-26 22:03] LABS: URINE SOURCE CLEAN CATCH
[2019-09-26 22:13] LABS: UR EPITHELIAL CELLS <10 /HPF (<10); URINE BACTERIA 1+ /HPF; URINE RBC <10 /HPF (<10); URINE WBC TNTC /HPF (<10)
[2019-09-26 22:40] LABS: UR AMPHETAMINES QUAL NONE DETECTED (NONE DETECT); UR BARBITUATES QUAL NONE DETECTED (NONE DETECT); UR BENZODIAZEPIN QUAL PRESUMPTIVE POSITIVE (NONE DETECT); UR CANNABINOIDS QUAL PRESUMPTIVE POSITIVE (NONE DETECT); UR COCAINE QUAL NONE DETECTED (NONE DETECT); UR METHADONE QUAL NONE DETECTED (NONE DETECT); UR OPIATES QUAL PRESUMPTIVE POSITIVE (NONE DETECT); UR OXYCODONE QUAL NONE DETECTED (NONE DETECT); UR PCP QUAL NONE DETECTED (NONE DETECT)
[2019-09-26 22:46] LABS: BILIRUBIN URINE NEGATIVE (NEGATIVE); COLOR STRAW; GLUCOSE URINE NEGATIVE (NEGATIVE); KETONE URINE NEGATIVE (NEGATIVE); TURBIDITY URINE CLEAR (CLEAR)
[2019-09-26 22:47] LABS: BLOOD URINE NEGATIVE (NEGATIVE); LEUKOCYTES URINE SMALL (NEGATIVE); NITRITE URINE NEGATIVE (NEGATIVE); PROTEIN URINE NEGATIVE (NEGATIVE); UROBILINOGEN URINE NORMAL (NORMAL)
[2019-09-26 22:51] LABS: URINE CASTS NONE SEEN; URINE CRYSTALS NONE SEEN; URINE SMALL ROUND CELLS NONE SEEN; URINE YEAST NONE SEEN
--- NOTE | 2019-09-26 23:34 | PROVIDER DOCUMENTATION ---
This chart was entered by Lorrie Carbajal Scribe, acting as scribe for Butch Burleson MD. HPI-General Adult - General Chief Complaint: Altered Mental Status Stated Complaint: decreased loc Time Seen by Provider: 09/26/19 19:25 Source: patient Unable to obtain history due to:: altered Allergies/Adverse Reactions: Patient Allergies Allergy/AdvReac Type Severity Reaction Status Date / Time No Known Allergies Allergy Verified 03/21/19 05:42 Home Medications: Home Medication List Medication Instructions Recorded Confirmed Last Taken Type Alprazolam [Xanax] 0.5 mg PO BID 01/17/19 03/21/19 03/20/19 21:00 History Carvedilol [Coreg] 12.5 mg PO BID 01/17/19 03/21/19 03/20/19 21:00 History Pantoprazole [Protonix] 40 mg PO DAILY 01/18/19 03/21/19 03/20/19 09:00 History Olanzapine/Fluoxetine HCl [Symbyax 1 tab PO QHS 03/18/19 03/21/19 03/20/19 21:00 History 6-50 mg Capsule] Tramadol HCl [Ultram] 50 mg PO PRN PRN 03/18/19 03/21/19 03/20/19 09:00 History Varenicline Tartrate [Chantix] 1 tab PO DAILY 03/18/19 03/21/19 03/20/19 21:00 History Hyoscyamine [Levsin] 0.125 mg PO Q8H PRN PRN #10 tab 03/21/19 Unknown Rx Phenazopyridine HCl [Pyridium] 100 mg PO Q8H PRN PRN #10 tab 03/21/19 Unknown Rx Sulfamethoxazole/Trimethoprim 1 ea PO BID #6 tab 03/21/19 Unknown Rx [Bactrim Ds Tablet] - History of Present Illness -Gen Adult Nature of Presenting Problems: pt is a 63 yr old female presenting via EMS after possible syncopal episode, possible seizure activity. per EMS pt was out trail riding this afternoon when family reports pt passed out and became clenched, unable to say how long she was like this. upon EMS arrival pt was out of vehicle, walking around and confused. per EMS pt had MRI at this AM for recent confusion. pt unsure why she is here. does not recall passing out or seizure activity. pt denies seizure hx. Review of Systems - Adult - REVIEW OF SYSTEMS - ADULT ROS:: limited per condition (pt confused, denies any complaints) Constitutional: reports: no symptoms reported Eyes: reports: no symptoms reported Ears, Nose, Mouth & Throat: reports: no symptoms reported Cardiovascular: reports: no symptoms reported Respiratory: reports: no symptoms reported Gastrointestinal: reports: no symptoms reported Genitourinary: reports: no symptoms reported Musculoskeletal: reports: no symptoms reported Integumentary: reports: no symptoms reported Neurological: reports: no symptoms reported Psychiatric: reports: no symptoms reported Endocrine: reports: no symptoms reported Hematologic/Lymphatic: reports: no symptoms reported Allergic/Immunologic: reports: no symptoms reported All Other Systems: Reviewed and Negative Past History - Adult - PAST MEDICAL HISTORY-ADULT Review of Records: reports: Old Records Reviewed, Nursing Assessment Review, Medications Reviewed, Social history reviewed & non-contributory. Major Childhood Illnesses: reports: denies history Cardiovascular: reports: denies history Respiratory: reports: denies history Gastrointestinal: reports: denies history Obstetrical/Gynecological: reports: denies history Genitourinary: reports: denies history Musculoskeletal: reports: denies history Neurological: reports: denies history Endocrine/Immune: reports: denies history Other Conditions: reports: denies history - IMMUNIZATION STATUS Childhood Immunizations: See Nurse Assessment Flu Vaccine: See Nurse Assessment - FAMILY HISTORY Family History: reviewed, not pertinent - SOCIAL HISTORY Smoking: cigarettes Living Situation: family Physical Exam-General - PHYSICAL EXAM-ADULT Initial Vital Signs Reviewed: Yes - CONSTITUTIONAL General Appearance: no apparent distress, slow to respond, other (confused) - EYES Eyes: PERRL/EOMI - HEAD, EARS, NOSE, MOUTH & THROAT HENMT: normocephalic/atraumatic, moist mucous membranes - NECK Neck: non-tender, full range of motion, supple, normal inspection - RESPIRATORY Respiratory: lungs clear, normal breath sounds - CARDIOVASCULAR Cardiovascular: normal peripheral pulses, regular rate, rhythm - GASTROINTESTINAL (ABDOMEN) Abdominal Exam: normal bowel sounds, non tender, soft - LYMPHATIC Lymphatic: no adenopathy - MUSCULOSKELETAL Back Exam: normal inspection Extremity: normal range of motion, non-tender, normal inspection - SKIN Integumentary: normal color, normal turgor, warm/dry - NEUROLOGIC Neurologic: grossly normal, no motor/sensory deficits - PSYCHIATRIC Psych/Mental Status: disoriented x 3 Progress - PLAN OF CARE/RESULTS Progress/Plan/Lab Results: Vital Signs - 8 hr 09/26/19 19:36 Temperature 97.5 F L Pulse Rate 65 Respiratory Rate 14 Blood Pressure 105/59 O2 Sat by Pulse Oximetry 94 L Orders Category Date Time Status Nursing- Obtain EKG ONCE Care 09/26/19 19:[address] HEAD W/O CONTRAST [CT] Stat Exams 09/26/19 19:38 Taken cxr [CHEST-1 VIEW] [RAD] Stat Exams 09/26/19 19:38 Taken ALCOHOL BLOOD Stat Lab 09/26/19 19:38 Uncollected CBC WITH ELECTRONIC DIFF [HEME] Stat Lab 09/26/19 19:38 Uncollected COMPREHENSIVE METABOLIC PANEL [CHEM] Stat Lab 09/26/19 19:38 Uncollected LACTATE, PLASMA [CHEM] Stat Lab 09/26/19 19:38 Uncollected TROPONIN T Stat Lab 09/26/19 19:38 Uncollected URINALYSIS [URINALYSIS] Stat Lab 09/26/19 19:38 Uncollected 0.9% Sodium Chloride Inj [Ns] 1,000 ml Med 09/26/19 19:40 Active IV 999 mls/hr EKG [EKG] Stat Ther 09/26/19 19:38 Ordered Result Diagrams: 09/26/19 20:21 09/26/19 20:21 - EKG 1 Time of EKG reading by physician:: 20:32 EKG Read and Signed by:: Butch Burleson EKG Interpretation (*Must complete 3 of following elements*): Abnormal (poss LAE) Rate: 67 Rhythm: nsr [place]: normal QRS: normal [place] Interval: normal ST Wave: normal - XRAY 1 XRAY Study: Chest Impression: Normal ( EXAM: CHEST-1 VIEW HISTORY: syncope TECHNIQUE: Single view COMPARISON: 01/20/2019 FINDINGS: The lungs are well expanded. The heart is not enlarged. The vessels are not distended. There are no infiltrates. No effusion identified. Left basilar granuloma. IMPRESSION: Negative exam. Electronically signed by Cory Layne 09/26/2019 7:50 PM 09/26/191949 Interpreting Physician: Cory Layne MD Dictated Date/Time: 09/26/191949 cc: Butch Burleson MD; Sixto [place]) Comparison with other Films: no changes (01/20/19) - CT/MRI 1 CT Study: Head Impression: Normal ( EXAM: CT HEAD W/O CONTRAST HISTORY: syncope vs seizure TECHNIQUE: CT head without contrast COMPARISON: 01/17/2019 FINDINGS: No parenchymal hemorrhage. No epidural or subdural hematoma. No subarachnoid hemorrhage. No mass identified on this noncontrasted exam. No hydrocephalus. No sinus opacification. IMPRESSION: No hemorrhage. Negative brain CT without contrast. This exam was performed using automated exposure control, adjustment of mA or kV according to patient size, and/or use of iterative reconstruction technique. Electronically signed by Cory Layne 09/26/2019 8:01 PM 09/07 Interpreting Physician: Cory Layne MD Dictated Date/Time: 09/26/191956 cc: Butch Burleson MD; Sixto [place]) Comparison with other Films: no changes (01/17/19) Departure - Departure Date of Disposition Decision: 09/26/19 Time of Disposition Decision: 23:33 DIAGNOSIS: Syncope Qualifiers: Syncope type: unspecified Qualified Code(s): R55 - Syncope and collapse Disposition: ADMITTED INPATIENT 09 Certified Medical Emergency: Emergent Condition: Stable Referrals and Follow-Ups: Sixto [place] [Primary Care Provider] - - Critical Care Note This patient required my direct & personal management of CC.: No Attestation - Physician/ ALFONSO Attestation Patient care was provided by Advanced Practice Provider:: No The physician spent face to face time with patient:: Yes Advanced Practice Provider documentation review:: Supervising physician onsite and consulted in the evaluation and care of this patient. The physician did have a face to face encounter with the patient. This chart was documented by the indicated scribe, (Lorrie Carbajal Scribe) and accurately reflects the services I performed and decisions made by me, Butch Burleson MD, as attested by the provider's signature.
[2019-09-27] MEDS ORDERED: ZOFRAN IV PRN (02:20)
[2019-09-27] MEDS: NS 1,000 ML IV SCH ×3 (03:44→21:36)
--- NOTE | 2019-09-27 05:16 | HISTORY AND PHYSICAL ---
PRIMARY CARE PHYSICIAN: Dr. Birmingham CHIEF COMPLAINT: Passed out. HISTORY OF PRESENTING ILLNESS: This is a 63-year-old female with a history of COPD, anxiety disorder and hypertension, who had presented to emergency department after she had an episode where she passed out while she was in the car. Patient had some similar episodes previously and her PCP ordered an MRI. However, we do not have any results of it. She was evaluated in the emergency department and she was alert oriented x3 at my examination and her neuro exam was negative. However, due to her presenting symptoms of repeated episodes of syncope it was thought that we will place her for observation for further evaluation and management. At the time of my examination, patient denied any headache, fever, chills, chest pain, shortness of breath, hemoptysis, melena or weight changes. States that she feels okay now. PAST MEDICAL HISTORY: Includes COPD, anxiety, hypertension. PAST SURGICAL: Hysterectomy. ALLERGIES: No known drug allergies. CURRENT MEDICATIONS: Xanax 0.5 mg p.o. b.i.d., bupropion 150 mg p.o. daily, carvedilol 12.5 mg p.o. b.i.d., pantoprazole 40 mg p.o. daily, tramadol 50 mg p.o. daily, Chantix 1 tablet p.o. daily. SOCIAL HISTORY: 30 pack years history of smoking. Denies any history of alcohol use. Admits to occasional marijuana use. FAMILY HISTORY: No history of coronary artery disease. REVIEW OF SYSTEMS: Fourteen point review of system as listed in HPI. Other systems negative. PHYSICAL EXAMINATION: GENERAL: Cooperative, friendly female. She is resting more comfortably now. VITAL SIGNS: Temperature 97.5 degrees, pulse 65, respiration 14 and blood pressure 105/59. HEENT: Atraumatic, normocephalic. Extraocular movements intact. PERRLA. NECK: Supple. CHEST: Clear to auscultation. CARDIOVASCULAR: Regular rate and rhythm. ABDOMEN: Soft. Positive bowel sounds. EXTREMITIES: No edema. NEUROLOGIC: She is awake, alert, oriented x3. Speech is intact. Strength 5/5 all extremities. GENITOURINARY: No bladder distention. SKIN: Warm. LABORATORIES AND STUDIES: Toxicology shows positive for cannabinoids, benzodiazepines and opiates. Sodium 140, potassium 4.1, chloride 102, CO2 is 25, BUN is 13, creatinine is 1.4, glucose is 125. Troponin 0.010. WBC 10.22, hemoglobin 12.9, hematocrit 39.7, platelets 215,000. CT of the head is negative. ASSESSMENT: A 63-year-old female with a history of chronic obstructive pulmonary disease, anxiety and hypertension, who had presented to emergency department after she had an episode where she passed out while she was in the car. She had similar episodes previously and due to her presenting symptoms we will place her for observation for further evaluation and management. 1. Syncopal episodes. 2. Chronic obstructive pulmonary disease. 3. Hypertension. PLAN: 1. We will admit patient to medical floor with telemetry. 2. We will check orthostatic blood pressure and pulse. 3. We will consult Neurology. 4. We will obtain previous MRI records. 5. Continue with DuoNebs p.r.n. 6. Monitor blood pressure. Resume antihypertensive agent. 7. Put patient on DVT prophylaxis with SCD. 8. We will continue to follow, and reassess and make further recommendation based on patient's clinical course. cc: Fran Vallecillo MD MTDD
[2019-09-27] MEDS ORDERED: VARENICLINE TARTRATE PO SCH (09:00)
[2019-09-27] MEDS ORDERED: WELLBUTRIN XL PO SCH (09:00)
[2019-09-27] MEDS: COREG PO SCH ×2 (10:56→20:05)
[2019-09-27] MEDS: PROTONIX PO SCH (10:57)
[2019-09-27] MEDS: XANAX PO SCH ×2 (10:57→20:07)
[2019-09-27] MEDS ORDERED: ROCEPHIN 1 GM in NS 50 ML IV SCH (16:30)
[2019-09-27] MEDS: TYLENOL PO PRN (17:04)
[2019-09-27] MEDS: KEPPRA PO SCH ×2 (17:58→21:35)
--- NOTE | 2019-09-27 18:01 | ECHO REPORT ---
ORDER DATE: 09/27/2019 ECHOCARDIOGRAPHIC MEASUREMENTS: 1. Interventricular septum 1.4 2. Left ventricular posterior wall 1.0. 3. Diastolic diameter 3.6. 4. Left atrium 2.7. 5. Aorta 3.3. SUMMARY OF TWO-DIMENSIONAL IMAGIN. Aortic valve leaflets are trileaflet. 2. Pulmonic valve was normal. 3. Mitral valve leaflets mildly thickened, opening normally. 4. Tricuspid valve was normal. 5. There is mild mitral regurgitation, mild tricuspid regurgitation. Peak velocity across the tricuspid valve 2.4 m/sec. 6. Pulmonary artery systolic pressure of 33 mmHg. 7. Peak velocity across the aortic valve less than 2 m/sec. There is no aortic stenosis. There is mild aortic regurgitation. 8. Normal left ventricular cavity size. 9. Mild left ventricular hypertrophy. Estimated ejection fraction of 65%. There is grade 1 diastolic dysfunction. 10. There is no pericardial effusion or obvious intracardiac mass or thrombus seen. cc: MD Fran De León MD
[2019-09-27] MEDS ORDERED: PATIENT'S OWN MED PO SCH (21:00)
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
--- NOTE | 2019-09-27 22:51 | PROGRESS NOTE ---
DATE: 09/27/2019 SUBJECTIVE: This is just an update note because her daughter, who is an health information administrator at the [facility] here locally, gave much more information. Reports she has had CAD without PCI. She has had an abdominal aortic aneurysm. She has a history of bladder cancer stage 0, which is being monitored. Reportedly history of enlarged liver, but her liver enzymes today are normal. Daughter, who is a nurse, is curious about adrenal insufficiency. They did do an MRI at the outlying facility and that was completely normal. Alternatively, it does look like she has some acute kidney injury. She is on medications that may affect her mental status and certainly possibly lower her seizure threshold. She is on Wellbutrin. She is on olanzapine, that certainly can have psychomotor effects. Appreciate Neurology consult. We may also get a Cardiology consult based on her echocardiogram and carotid results. cc: Sumeet Murillo MD
[2019-09-28 06:05] LABS: BASO# 0.03 X1000 (0.0-0.2); BASO% 0.4 % (0.0-0.8); EOS# 0.16 X1000 (0.0-0.7); HEMATOCRIT 38.4 % (37.0-47.0); HEMOGLOBIN 12.7 g/dL (12.0-16.0); LYMPH# 2.85 X1000 (1.2-3.4); LYMPH% 36.5 % (20.5-51.1); MCH 30.1 PG (27-31); MCHC 33.1 g/dL (33-37); MONO# 0.54 X1000 (0.11-0.59); MONO% 6.9 % (1.7-9.3); MPV 11.4 FL (7.4-10.4); NEUT# 4.23 X1000 (1.4-6.5); NEUT% 54.2 % (42.2-75.2); PLT 207 X1000 (130-400); RBC 4.22 XMIL (4.2-5.4); RDW 14.6 % (11.5-14.5); WBC 7.81 X1000 (4.8-10.8)
[2019-09-28 06:30] LABS: CALCIUM 8.9 mg/dL (8.8-10.2); CREATININE 1.2 mg/dL (0.5-0.9); POTASSIUM 4.5 mmol/L (3.5-5.1)
[2019-09-28] MEDS ORDERED: CORTROSYN IV ONE (07:00)
[2019-09-28 07:08] LABS: ALB/GLOB RATIO 1.9; ALBUMIN 3.9 g/dL (3.5-5.0); ALKALINE PHOSPHATASE 60 U/L (32-104); DIRECT BILIRUBIN < 0.10 mg/dL (0.00-0.20); GGT 9 U/L (7-32); GOT 10 U/L (10-30); GPT 6 U/L (10-36)
--- NOTE | 2019-09-28 07:44 | EEG REPORT ---
DATE: 09/27/2019 COMMENT: This is a digitally recorded EEG on a 63-year-old patient with recent episode raising question of seizure, also other possible neurologic episodes over the last year. FINDINGS: During waking, low amplitude 10 hertz posterior rhythm is present bilaterally with uncertain reactivity to eye opening. Background contains polymorphic movement of the frequencies over the frontal and central regions at low amplitude. Drowsing occurred briefly. Stage 2 sleep was not recorded. Hyperventilation was not done. Photic stimulation produced sustained entrainment and mid flash frequencies. There were several low amplitude sharp waves and sharp and slow wave complexes recorded bitemporally, mostly asynchronous. These were not repetitive. No electrographic seizure was recorded. INTERPRETATION: Abnormal EEG because of epileptiform discharge. CORRELATION: This would correlate with clinical seizure but does not prove the presence of a seizure disorder. cc: Karlos Maldonado III, MD MTDD
--- NOTE | 2019-09-28 08:00 | Carotid Study ---
DATE: 09/27/2019 REFERRING PHYSICIANS: Dr. Vallecillo. INTERPRETING PHYSICIAN: Dr. Noonan. POLYMERIZATION KETTLE OPERATOR: Michelle. The patient has syncope. Velocities are noted. The right distal internal carotid artery peak systolic velocity is 112. Right internal carotid artery pressure was 1.3. Left internal carotid artery pressure is 1.5. Percent stenosis is the 40-59% on the right, 0-39% on the left. No significant plaque is seen. INTERPRETATION: No significant plaque is seen on either side. There is antegrade vertebral flow bilaterally. There is no significant stenosis on either side. By velocity she meets the criteria for 40 to 59 percent stenosis on the right. cc: MD Fran Vallejo MD
[2019-09-28 08:11] VITALS: BP 165/76
[2019-09-28] MEDS: KEPPRA PO SCH (09:54)
[2019-09-28] MEDS: COREG PO SCH (09:54)
[2019-09-28] MEDS: PROTONIX PO SCH (09:54)
[2019-09-28] MEDS: XANAX PO SCH (09:54)
--- NOTE | 2019-09-28 11:48 | Diag Imaging Result Doc PS360 ---
EXAM: US ABDOMEN-COMPLETE INDICATION: abdominal pain COMPARISON: 03/13/2018 FINDINGS: The gallbladder appears normal with no stones, wall thickening, or pericholecystic fluid. The common bile duct is normal in diameter. Sonographic Mcrae's sign was reported to be negative. The liver is grossly unremarkable. Portal venous flow is hepatopetal. The visualized portions of the pancreas is unremarkable. There is aortic atherosclerotic disease. The visualized aorta and IVC are grossly unremarkable, otherwise. The spleen is unremarkable. The kidneys are grossly unremarkable. IMPRESSION: Aortic atherosclerotic disease. Unremarkable abdominal ultrasound, otherwise. Electronically signed by Tylor Osorio 09/28/2019 11:46 AM
[2019-09-28] MEDS: TYLENOL PO PRN (14:30)
--- NOTE | 2019-09-29 05:13 | DISCHARGE SUMMARY ---
ADMISSION DATE: 09/26/2019 DISCHARGE DATE: 09/28/2019 PRIMARY CARE PHYSICIAN: Dr. Birmingham. ADMISSION DIAGNOSES: 1. Syncopal episode. 2. Chronic obstructive pulmonary disease. 3. Hypertension. DISCHARGE DIAGNOSIS: 1. Syncopal episode. 2. Chronic obstructive pulmonary disease. 3. Hypertension. SUMMARY OF FINDINGS: This is a 63-year-old female who presented to the emergency room after she had passed out while she was in her car. Had a similar episode previously and her PCP had ordered an MRI. However, we do not have any results of that at the time so she was evaluated. Found to be alert and oriented x3 on examination and neuro exam was negative, but due to her presenting symptoms of repeated episodes of syncope we placed her in the hospital. We did a carotid Doppler on 09/27/2019 with no significant plaque seen in either side. Echocardiogram showed ejection fraction of 65%, but does have a grade 1 diastolic dysfunction. We consulted Neurology and we did an abdomen ultrasound today that showed aortic atherosclerotic disease but unremarkable abdominal ultrasound otherwise and it is now felt that she can safely be discharged home today. DISCHARGE MEDICATIONS: Include Xanax 0.5 mg p.o. b.i.d., Keppra 500 mg p.o. b.i.d. She will continue her home medications of bupropion 150 mg p.o. daily, Coreg 12.5 mg p.o. b.i.d., Symbyax 6/50 mg 1 p.o. at bedtime, pantoprazole 40 mg p.o. daily and Chantix 1 mg 1 tablet p.o. daily. FOLLOWUP: She will need to follow up with her primary care physician in the next 1 to 2 weeks and call their office for an appointment. TIME SPENT: This is a 35 minute discharge. Dictated by PRISCILA Hale for Sumeet Murillo MD cc: PRISCILA Hale MD Don Beach, MD
== END 2019-09-28 16:22 | disposition home or self-care (01) ==
LOC: SUPCPDRO → 3N 19:17 → ED 19:17 → SUATTDRO 19:18
PROVIDERS: ATTEND Internal Medicine